=== PATIENT | female | born 1950 | race Caucasian/White ===

== ENCOUNTER → 2017-01-24 | Outpatient (CLI) | payer BC | LOC: EXRD 10:14 | DX: M79.641 Pain in right hand (principal); M25.841 Other specified joint disorders, right hand | CPT/HCPCS: 73130 ==

== ENCOUNTER → 2021-03-08 | Outpatient (CLI) | payer OTHER | LOC: EXRD 13:00 | DX: Z78.0 Asymptomatic menopausal state (principal) | CPT/HCPCS: 77080 ==

== ENCOUNTER → 2021-03-08 | Outpatient (CLI) | payer OTHER | LOC: MAMO 14:09 | DX: Z12.31 Encounter for screening mammogram for malignant neoplasm of breast (principal) | CPT/HCPCS: 77063; 77067 ==

== ENCOUNTER → 2021-09-29 | Outpatient (CLI) | payer OTHER | LOC: LBRF 11:38 | DX: R30.0 Dysuria (principal); E55.9 Vitamin D deficiency, unspecified | CPT/HCPCS: 87077; 87086; 87186 ==

== ENCOUNTER → 2022-03-01 | Outpatient (CLI) | payer OTHER | LOC: EXRD 01-06 15:00 → KOH-I 13:30 | DX: M79.662 Pain in left lower leg (principal); M79.89 Other specified soft tissue disorders | CPT/HCPCS: 93971 ==

== ENCOUNTER → 2022-05-02 | Outpatient (CLI) | payer OTHER | LOC: MAMO 04-19 10:30 | DX: Z12.31 Encounter for screening mammogram for malignant neoplasm of breast (principal) | CPT/HCPCS: 77063; 77067 ==